=== PATIENT | female | born 1980 | race Caucasian/White ===

== ENCOUNTER → 2023-01-21 | Outpatient (CLI) | payer OTHER | LOC: COL.PUL 08:00 | DX: R05.9 Cough, unspecified (principal) | CPT/HCPCS: J7674 ==

== ENCOUNTER 2023-12-28 07:11 | Day surgery (SDC) | payer OTHER ==
[~2023-12-28 07:11] MED LIST: LR 1,000 ML IV SCH; Ondansetron 4 MG/2 ML VIAL IV PRN
[2023-12-28] MEDS ORDERED: ABILIFY2 MG PO (08:06)
[2023-12-28] MEDS ORDERED: HYGROTON 2525 MG/TAB PO (08:06)
[2023-12-28] MEDS ORDERED: ZETIA 10MG TAB10 MG PO (08:07)
[2023-12-28] MEDS ORDERED: COLACE 100100 MG/CAP PO (08:07)
[2023-12-28] MEDS ORDERED: NATURAL IRON65 MG (08:07)
[2023-12-28] MEDS ORDERED: ZOLOFT 100MG100 MG PO (08:08)
[2023-12-28] MEDS ORDERED: COZAAR 50MG50 MG/TAB PO (08:08)
[2023-12-28] MEDS ORDERED: VALTREX1 GM PO (08:09)
[2023-12-28] MEDS ORDERED: VITAMIN C500 MG PO (08:10)
[2023-12-28] MEDS ORDERED: Lidocaine PF 2% (20 MG/ML) 5 ML VIAL ONE (08:25)
[2023-12-28 09:15] VITALS: BP 112/63; PULSE 66; TEMP 97.6
--- NOTE | 2023-12-28 09:15 | NUR ---
PATIENT RETURNS TO [facility] VIA CART. ASSIST X 2 TO CHAIR. VITAL SIGNS WNL. IS AT BEDSIDE. PATIENT REQUESTS APPLE JUICE AND JELLO. CALL LIGHT WITHIN REACH. WILL CONTINUE TO MONITOR.
[2023-12-28 09:30] VITALS: BP 113/67; PULSE 61
--- NOTE | 2023-12-28 09:30 | NUR ---
PATIENT IS DOING WELL. TOLERATED EATING AND DRINKING WITHOUT NAUSEA. IV DISCONTINUED. VITAL SIGNS WNL. WILL CONTINUE TO MONITOR.
[2023-12-28 09:45] VITALS: BP 118/69; PULSE 56
--- NOTE | 2023-12-28 09:45 | NUR ---
PATIENT IS READY FOR DISCHARGE. LAST SET OF VITALS WNL. WENT OVER DISCHARGE INSTRUCTIONS WITH PATIENT AND HER . WAITING FOR DOCTOR TO SPEAK WITH PATIENT. WILL DISCHARGE ONCE PATIENT IS READY.
[2023-12-28] MEDS ORDERED: MIRALAX PA17 GM/Dose PO (09:47)
[2023-12-28] MEDS ORDERED: BENTYL 10MG10 MG/CAP PO (09:48)
[2023-12-28 11:32] VITALS: BP 110/73; PULSE 63
== END 2023-12-28 10:05 | disposition home or self-care (01) ==
LOC: SDCO 07:11
DX: K29.30 Chronic superficial gastritis without bleeding (principal); K21.9 Gastro-esophageal reflux disease without esophagitis; K62.89 Other specified diseases of anus and rectum; D64.9 Anemia, unspecified; K59.00 Constipation, unspecified; K64.0 First degree hemorrhoids; K44.9 Diaphragmatic hernia without obstruction or gangrene; F17.210 Nicotine dependence, cigarettes, uncomplicated
CPT/HCPCS: J2704; J7120